=== PATIENT | female | born 1995 ===

== ENCOUNTER 2023-09-09 11:07 | Day surgery (SDC) | payer BC ==
[~2023-09-09] VITALS: Ht 165.1 cm; Wt 58.6 kg
[~2023-09-09 11:07] MED LIST: LR 1,000 ML IV SCH; Ondansetron 4 MG/2 ML VIAL IV PRN
[2023-09-09] MEDS ORDERED: Lidocaine PF 2% (20 MG/ML) 5 ML VIAL ONE (11:49)
[2023-09-09] MEDS ORDERED: FLONASEALLERGY NS (11:52)
[2023-09-09 12:20] VITALS: BP 137/86; PULSE 99; TEMP 98.3
[2023-09-09 13:00] VITALS: BP 98/72; PULSE 92; TEMP 97.5
[2023-09-09 13:15] VITALS: BP 110/75; PULSE 88
--- NOTE | 2023-09-09 13:25 | NUR ---
1300 RETURNS TO ROOM 3 PER CART. AWAKE, ALERT, RESP UNLABORED. AMBULATES TO RECLINER WITH STANDBY ASSIST. DENIES NAUSEA OR ABD PAIN. VITAL SIGNS OBTAINED. CALL LIGHT AT SIDE 1308 DR. HENRIQUE MARIE TO VISIT WITH PATIENT 1315 TOLERATES PO JUICE AND ICE CREAM WITHOUT NAUSEA. DISCHARGE INSTRUCTIONS REVIEWED. PATIENT VERBALIZES UNDERSTANDING. COPY PROVIDED IN DISCHARGE FOLDER 1317 DRESSES SELF, THEN AMBULATED TO BATHROOM WITH STANDBY ASSIST
== END 2023-09-09 13:25 | disposition home or self-care (01) ==
LOC: SDCO 11:07
DX: K63.5 Polyp of colon (principal); K92.1 Melena; R19.7 Diarrhea, unspecified; R11.0 Nausea
CPT/HCPCS: J2704; J7120